=== PATIENT | male | born 1945 | race Caucasian/White ===

== ENCOUNTER 2017-03-05 09:53 | Emergency (ER) | payer OTHER ==
[~2017-03-05] VITALS: Ht 172.7 cm; Wt 82.0 kg
[~2017-03-05 09:53] MED LIST: ASPI81TA11 PO; ATOR40TA PO; B12-1CHW CHEW; BENA25TA8 PO; CARV12.52 PO; ISOS30 PO; MELA300T PO; OMEG100037 PO; OMEP20TA39 PO; OXYC1SOL5 PO; PLAV75TA PO; RAMI2.5C29 PO
[2017-03-05 09:57] VITALS: BP 140/77; PULSE 55; RESP 17; TEMP 97.4; O2SAT 96
[2017-03-05] MEDS ORDERED: ISOS30TA3 PO (10:11)
[2017-03-05] MEDS ORDERED: CARV12.52 PO (10:11)
[2017-03-05] MEDS ORDERED: TRAZ100T4 PO (10:11)
[2017-03-05] MEDS ORDERED: ASPI1TAB69 PO (10:11)
[2017-03-05] MEDS ORDERED: RAMI2.5C PO (10:11)
[2017-03-05] MEDS ORDERED: ATOR40TA16 PO (10:11)
[2017-03-05] MEDS ORDERED: MELA5TAB15 PO (10:11)
[2017-03-05] MEDS ORDERED: CLOP75TA PO (10:11)
[2017-03-05] MEDS ORDERED: VITACAP7 PO (10:11)
[2017-03-05] MEDS ORDERED: FISH1000 PO (10:11)
[2017-03-05] MEDS ORDERED: OMEP20TA PO (10:11)
[2017-03-05] MEDS ORDERED: ASPIRIN 81 MG CHEW TAB PO ONE (10:15)
[2017-03-05] MEDS ORDERED: SODIUM CHLORIDE 0.9% FLUSH 10 ML FLUSH IVF PRN (10:15)
[2017-03-05] MEDS ORDERED: CYCLOBENZAPRINE HCL 10 MG TAB PO ONE (10:15)
[2017-03-05 10:40] VITALS: RESP 17; O2SAT 96
[2017-03-05 10:49] LABS: AUTOMATED NEUTROPHIL # 4.4 TH/MM3 (1.8-7.7); BASOPHIL # 0.1 TH/MM3 (0-0.2); BASOPHIL % 0.9 % (0.0-2.0); EOSINOPHIL # 0.1 TH/MM3 (0-0.4); EOSINOPHIL % 2.3 % (0.0-4.0); HEMATOCRIT 41.7 % (39.0-51.0); HEMO FLAGS DIFF FINAL; LYMPH % 11.3 % (9.0-44.0); LYMPHOCYTE # 0.6 TH/MM3 (1.0-4.8); MEAN CELL VOLUME 94.5 FL (80.0-100.0); MEAN CORPUSCULAR HGB CONC 33.9 % (32.0-36.0); MONO % 8.4 % (0.0-8.0); NEUT % 77.1 % (16.0-70.0); PLATELET COUNT 121 TH/MM3 (150-450); RED BLOOD COUNT 4.42 MIL/MM3 (4.50-5.90); WHITE BLOOD COUNT 5.6 TH/MM3 (4.0-11.0)
[2017-03-05 10:59] LABS: APTT (PATIENT) 27.5 SEC (24.3-30.1); PROTHROMBIN TIME - PATIENT 10.5 SEC (9.8-11.6)
[2017-03-05 11:07] LABS: ALT (GPT) 25 U/L (12-78); ANION GAP 7 MEQ/L (5-15); AST (GOT) 23 U/L (15-37); BLOOD UREA NITROGEN 15 MG/DL (7-18); CHLORIDE 110 MEQ/L (98-107); GLOMERULAR FILTRATION RATE 63 ML/MIN (>89); SODIUM (NA) 144 MEQ/L (136-145)
--- NOTE | 2017-03-05 11:08 | RADRPT ---
EXAM DATE/TIME: 03/05/2017 10:37 [facility] COMPARISON: CHEST SINGLE AP, April 02, 2016, 13:08. INDICATIONS : Chest pain and numbness down left arm. MEDICAL HISTORY : Cardiovascular disease. SURGICAL HISTORY : CABG. Pacemaker. Heart stents. ENCOUNTER: Initial ACUITY: 3 days PAIN SCORE: 3/10 LOCATION: Bilateral chest FINDINGS: PA and lateral views of the chest demonstrate the lungs to be symmetrically aerated without evidence of mass, infiltrate or effusion. The cardiomediastinal contours are unremarkable. Osseous structure s are intact. The left subclavian transvenous pacer remains in place. The patient is again noted stat us post median sternotomy for bypass grafting procedure. CONCLUSION: No acute disease. Dev Avery MD on March 05, 2017 at 11:05 Board Certified Radiologist. This report was verified electronically.
--- NOTE | 2017-03-05 11:09 | RADRPT ---
EXAM DATE/TIME: 03/05/2017 10:42 [facility] COMPARISON: No previous studies available for comparison. INDICATIONS : Neck pain, tingling, and numbess down left arm. MEDICAL HISTORY : Cardiovascular disease. SURGICAL HISTORY : CABG. Pacemaker. Heart stents. ENCOUNTER: Initial ACUITY: 1 day PAIN SCORE: 2/10 LOCATION: c-spine FINDINGS: Five view examination was performed. There is normal alignment and curvature of the vertebral bodies down to the level of C7. No evidence of fracture or subluxation. Vertebral body height is normal. Degenerative disc changes present at the C5-6 and C6-7 levels with disc space narrowing and hypertrop hic change. There are degenerative changes involving the uncovertebral joints with encroachment on th e neural foramina at the C5-6 and C6-7 levels. Both views are rotated with poor visualization of the neural foramina. The prevertebral soft tissues are of normal thickness. The atlanto-axial articulati on is intact. CONCLUSION: 1. Mild to moderate degenerative disc change at C5-6 and C6-7 levels. 2. Degenerative joint changes. Dev Avery MD on March 05, 2017 at 11:06 Board Certified Radiologist. This report was verified electronically.
[2017-03-05 11:10] LABS: ALKALINE PHOSPHATASE 133 U/L (45-117); CREATINE KINASE 116 U/L (39-308); TOTAL BILIRUBIN ADULT 0.7 MG/DL (0.2-1.0)
[2017-03-05 11:23] LABS: CKMB 1.6 NG/ML (0.5-3.6)
[2017-03-05] MEDS ORDERED: CYCL1TAB29 PO (11:42)
--- NOTE | 2017-03-05 11:42 | PD ---
HPI Chief Complaint: Cardiac Complaint Time Seen by Provider: 10:02 Travel History International Travel<30 days: No Contact w/Intl Traveler<30days: No Traveled to known affect area: No History of Present Illness HPI Patient is a 72 year old male who comes in complaining of left arm pain and numbness. He says it's been going on for the past 2 or 3 days. He does report painting his house recently and raising his hand above his head for long periods of time. He says he feels a numbness and tingling that shoots down the outside of his arm. He denies any direct trauma to the arm. He denies any chest pain or shortness of breath. He says that he was concerned because it is his left arm and he worries that this might be sign of a heart attack. PFSH Past Medical History Hx Anticoagulant Therapy: Yes (ASPIRIN, PLAVIX) Heart Rhythm Problems: No Cancer: Yes (COLON) Cardiac Catheterization: Yes Cardiovascular Problems: Yes High Cholesterol: Yes Chemotherapy: Yes (COLON CA) Chest Pain: Yes Congestive Heart Failure: No COPD: Yes Diabetes: No Diminished Hearing: Yes Gastrointestinal Disorders: Yes (Colon Cancer) GERD: Yes Genitourinary: No Hypertension: Yes Musculoskeletal: No Neurologic: Yes Reproductive: No Respiratory: Yes Myocardial Infarction: Yes (X7) Radiation Therapy: Yes (COLON) Past Surgical History Cardiac Surgery: Yes Coronary Artery Bypass Graft: Yes Pacemaker: Yes (DEFIBRILLATOR) Tonsillectomy: Yes Other Surgery: Yes (DEFIBRILLATOR) Family History Family Myocardial Infarction: Yes (FATHER) Social History Alcohol Use: No (RARE) Tobacco Use: No Substance Use: No Allergies-Medications (Allergen,Severity, Reaction): Coded Allergies: No Known Allergies (Verified , 03/05/17) Reported Meds & Prescriptions Reported Meds & Active Scripts Active Flexeril (Cyclobenzaprine HCl) 10 Mg Tab 10 Mg PO TID Reported Melatonin 5 Mg Tab 5 Mg PO HS Omeprazole 20 Mg Tab 20 Mg PO DAILY Trazodone (Trazodone HCl) 100 Mg Tab 100 Mg PO HS Atorvastatin (Atorvastatin Calcium) 40 Mg Tab 40 Mg PO HS Ramipril 2.5 Mg Cap 2.5 Mg PO DAILY Aspirin 81 Mg Tabdr 81 Mg PO DAILY B Complex (B-Complex Vitamins) 1 Cap 1 Cap PO DAILY Fish Oil (Point-3 Fatty Acids) 1,000 Mg Cap 1,000 Mg PO BID Carvedilol 12.5 Mg Tab 12.5 Mg PO BID Clopidogrel (Clopidogrel Bisulfate) 75 Mg Tab 75 Mg PO DAILY Isosorbide Mononitrate ER (Isosorbide Mononitrate) 30 Mg Milady 30 Mg PO DAILY Review of Systems Except as stated in HPI: all other systems reviewed are Neg General / Constitutional: No: Fever, Chills HENT: No: Headaches, Lightheadedness Cardiovascular: No: Chest Pain or Discomfort Respiratory: No: Shortness of Breath Gastrointestinal: No: Nausea, Vomiting Musculoskeletal: Positive: Pain, No: Edema Skin: No Change in Pigmentation Neurologic: No: Weakness, Dizziness Physical Exam Narrative GENERAL: Awake and alert, in no acute distress. SKIN: Focused skin assessment warm/dry. HEAD: Atraumatic. Normocephalic. EYES: Pupils equal and round. No scleral icterus. ENT: Mucous membranes pink and moist. NECK: Trachea midline. No JVD. Tender to palpation of the left trapezius muscle. CARDIOVASCULAR: Regular rate and rhythm. No murmur appreciated. RESPIRATORY: No accessory muscle use. Clear to auscultation. Breath sounds equal bilaterally. MUSCULOSKELETAL: No obvious deformities. No clubbing. No cyanosis. No edema. Left radial pulse intact. Full range of motion of the left arm. No tenderness to palpation of the left arm. Radial, median, ulnar nerves are intact. NEUROLOGICAL: Awake and alert. No obvious cranial nerve deficits. Motor grossly within normal limits. Normal speech. No decreased sensation. PSYCHIATRIC: Appropriate mood and affect; insight and judgment normal. Data Data Last Documented VS Vital Signs Date Time Temp Pulse Resp B/P Pulse Ox O2 Delivery O2 Flow Rate FiO2 03/05/17 10:40 96 Room Air 03/05/17 10:40 17 03/05/17 09:57 97.4 55 140/77 Orders Electrocardiogram (03/05/17 ) Ckmb (Isoenzyme) Profile (03/05/17 10:14) Complete Blood Count With Diff (03/05/17 10:14) Comprehensive Metabolic Panel (03/05/17 10:14) Magnesium (Mg) (03/05/17 10:14) Prothrombin Time / Inr (Pt) (03/05/17 10:14) Act Partial Throm Time (Ptt) (03/05/17 10:14) Troponin I (03/05/17 10:14) Ecg Monitoring (03/05/17 10:14) Bilateral Bp Monitoring (03/05/17 10:14) Iv Access Insert/Monitor (03/05/17 10:14) Oximetry (03/05/17 10:14) Oxygen Administration (03/05/17 10:14) Aspirin Chew (Aspirin Chew) (03/05/17 10:15) Sodium Chloride 0.9% Flush (Ns Flush) (03/05/17 10:15) Chest, Pa & Lat (03/05/17 10:14) Spine, Cervical Compl([id number]) (03/05/17 ) Cyclobenzaprine (Flexeril) (03/05/17 10:15) CKMB (03/05/17 10:15) CKMB% (03/05/17 10:15) Labs Laboratory Tests Test 03/05/17 10:15 White Blood Count 5.6 TH/MM3 Red Blood Count 4.42 MIL/MM3 Hemoglobin 14.1 GM/DL Hematocrit 41.7 % Mean Corpuscular Volume 94.5 FL Mean Corpuscular Hemoglobin 32.0 PG Mean Corpuscular Hemoglobin 33.9 % Concent Red Cell Distribution Width 14.0 % Platelet Count 121 TH/MM3 Mean Platelet Volume 9.6 FL Neutrophils (%) (Auto) 77.1 % Lymphocytes (%) (Auto) 11.3 % Monocytes (%) (Auto) 8.4 % Eosinophils (%) (Auto) 2.3 % Basophils (%) (Auto) 0.9 % Neutrophils # (Auto) 4.4 TH/MM3 Lymphocytes # (Auto) 0.6 TH/MM3 Monocytes # (Auto) 0.5 TH/MM3 Eosinophils # (Auto) 0.1 TH/MM3 Basophils # (Auto) 0.1 TH/MM3 CBC Comment DIFF FINAL Differential Comment Prothrombin Time 10.5 SEC Prothromb Time International 1.0 RATIO Ratio Activated Partial 27.5 SEC Thromboplast Time Sodium Level 144 MEQ/L Potassium Level 4.0 MEQ/L Chloride Level 110 MEQ/L Carbon Dioxide Level 27.0 MEQ/L Anion Gap 7 MEQ/L Blood Urea Nitrogen 15 MG/DL Creatinine 1.14 MG/DL Estimat Glomerular Filtration 63 ML/MIN Rate Random Glucose 116 MG/DL Calcium Level 8.3 MG/DL Magnesium Level 2.0 MG/DL Total Bilirubin 0.7 MG/DL Aspartate Amino Transf 23 U/L (AST/SGOT) Alanine Aminotransferase 25 U/L (ALT/SGPT) Alkaline Phosphatase 133 U/L Total Creatine Kinase 116 U/L Creatine Kinase MB 1.6 NG/ML Troponin I LESS THAN 0.02 NG/ML Total Protein 6.5 GM/DL Albumin 3.4 GM/DL MDM Medical Decision Making Medical Screen Exam Complete: Yes Emergency Medical Condition: Yes Medical Record Reviewed: Yes Interpretation(s) ECG shows sinus bradycardia at 55 with first-degree AV block, no ST elevation or depression. Differential Diagnosis Radiculopathy versus muscle strain versus ACS (unlikely) Narrative Course Patient is a 72-year-old male who comes in complaining of left arm pain. He admits he was worried because he associates left arm pain with heart problems. Exam shows no acute abnormalities other than tenderness to the left trapezius muscle. IV established, labs sent. Patient connected to potline monitor. Labs show no acute abnormalities, troponin is negative. ECG shows no evidence of ischemia. Patient given Flexeril. Chest x-ray performed shows no acute abnormalities. Neck x-ray shows degenerative changes. Believe it is likely patient has a cervical radiculopathy. He has had similar symptoms on the right arm and was told by his doctor he had a pinched nerve. He was just nervous today because his symptoms were in the left arm. Patient offered observation for rule out ACS , however he is comfortable going home at this time and would rather be at home. Advised that I cannot predict if he is going to have a heart attack and , he is comfortable with leaving at this time. Advised to take Tylenol as needed for pain, given a prescription for some Flexeril. Advised follow-up with his csw, Dr. Oliva tomorrow. Advised follow-up with his regular doctor. Advised to return to the ED as needed for any worsening symptoms. Diagnosis Primary Impression: Radiculopathy Qualified Code: M54.12 - Cervical radiculopathy Additional Impression: Left arm pain Patient Instructions: Cervical Radiculopathy (ED), General Instructions Additional Instructions: Follow up with your csw tomorrow. Take Tylenol as needed for pain. You can take Flexeril for severe pain, be careful as it may make you drowsy. Return to the ED as needed for any worsening symptoms. Scripts Cyclobenzaprine (Flexeril)10 Mg Tab10 Mg PO TID #15 TAB Ref 0 Prov:Lilia Corrales MD 03/05/17 Disposition: 01 DISCHARGE HOME Condition: Stable Lilia Corrales MD March 05, 2017 11:42
--- NOTE | 2017-03-06 11:29 | EKG ---
Date Performed: 03/05/2017 Time Performed: 09:58:40 PTAGE: 72 years EKG: SINUS BRADYCARDIA WITH FIRST DEGREE AV BLOCK ANTEROSEPTAL MYOCARDIAL INFARCTION ABNORMAL EC G PREVIOUS TRACING : 04/02/2016 19.28 DOCTOR: Brenden Zepeda Interpretating Date/Time 03/06/2017 11:22:25
== END 2017-03-05 12:21 | disposition home or self-care (01) ==
LOC: NEPC 09:53
DX: M54.12 Radiculopathy, cervical region (principal); Z79.82 Long term (current) use of aspirin; Z79.01 Long term (current) use of anticoagulants; Z85.038 Personal history of other malignant neoplasm of large intestine; I10 Essential (primary) hypertension; I25.2 Old myocardial infarction; Z95.0 Presence of cardiac pacemaker; Z79.899 Other long term (current) drug therapy
CPT/HCPCS: 71020; 72050; 80053; 82550; 82552; 83735; 84484; 85025; 85610; 85730; 93005